=== PATIENT | female | born 1990 | race Asian ===

== ENCOUNTER 2017-02-04 10:11 | Emergency (ER) | payer OTHER ==
[2017-02-04] MEDS ORDERED: Lidocaine 2% VISCOUS* 15 ML UDC PO ONE (12:29)
[2017-02-04] MEDS ORDERED: Ibuprofen TAB* 600 MG PO ONE (12:32)
--- NOTE | 2017-02-04 12:34 | ED ---
Throat Pain/Nasal Congestion - HPI Summary HPI Summary: Patient presents with the sensation that she has something stuck in her throat. She at very hot soup and corn chips yesterday, and the pain began then. She denies eating foods with bones recently. She denies difficulty breathing or swallowing, and has been able to eat and drink. She has not taken any medication for pain. - History of Current Complaint Chief Complaint: EDThroatPain Time Seen by Provider: 02/04/17 10:22 Hx Obtained From: Patient Onset/Duration: Sudden Onset Severity: Mild Associated Signs And Symptoms: Positive: Dysphagia Cough: None - Allergies/Home Medications Allergies/Adverse Reactions: Allergies Allergy/AdvReac Type Severity Reaction Status Date / Time No Known Allergies Allergy Verified 02/04/17 11:36 PMH/Surg Hx/FS Hx/Imm Hx Previously Healthy: Yes Infectious Disease History: No Infectious Disease History: Reports: Traveled Outside the [place] in Last 30 Days - mears - Family History Known Family History: Positive: None - Social History Occupation: Student Lives: Alone Alcohol Use: None Substance Use Type: Reports: None Smoking Status (MU): Never Smoked Tobacco Review of Systems Negative: Fever, Chills Positive: Sore Throat Negative: Chest Pain Negative: Shortness Of Breath, Cough All Other Systems Reviewed And Are Negative: Yes Physical Exam Triage Information Reviewed: Yes Vital Signs On Initial Exam: Initial Vitals Temp Pulse Resp BP Pulse Ox 98.4 F 67 16 98/64 100 02/04/17 10:14 02/04/17 10:14 02/04/17 10:14 02/04/17 10:14 02/04/17 10:14 Vital Signs Reviewed: Yes Appearance: Positive: Well-Appearing, No Pain Distress, Well-Nourished Skin: Positive: Warm, Skin Color Reflects Adequate Perfusion, Dry, Soft Head/Face: Positive: Normal Head/Face Inspection Eyes: Positive: EOMI, BRONWYN, Conjunctiva Clear ENT: Positive: Hearing grossly normal, Pharynx normal. Negative: Pharyngeal erythema, Nasal congestion, Tonsillar swelling, Tonsillar exudate Neck: Positive: Supple, Nontender, No Lymphadenopathy Respiratory/Lung Sounds: Positive: Clear to Auscultation, Breath Sounds Present Cardiovascular: Positive: RRR Musculoskeletal: Negative: Edema Left, Edema Right Neurological: Positive: Sensory/Motor Intact, Alert, Oriented to Person Place, Time, [place] Bundle Intact Distally, Normal Gait Psychiatric: Positive: Affect/Mood Appropriate AVPU Assessment: Alert Diagnostics - Vital Signs Vital Signs Temp Pulse Resp BP Pulse Ox 02/04/17 10:14 98.4 F 67 16 98/64 100 - Laboratory Lab Statement: Any lab studies that have been ordered have been reviewed, and results considered in the medical decision making process. - Radiology No standard instances Xray Interpretation: No Acute Changes Radiology Interpretation Completed By: Radiologist EENT Course/Dx - Differential Diagnoses Differential Diagnoses: Abrasion, Contusion, Foreign Body, Laceration, Trauma - Diagnoses Provider Diagnoses: Sore throat Discharge - Discharge Plan Condition: Stable Disposition: HOME Referrals: [facility] [Medical Doctor] - Additional Instructions: Please eat soft foods for the next 1-2 days until your throat improves. Use 600mg of ibuprofen three times daily with meals for the next 2-3 days to decrease pain. Follow-up with [facility] if your symptoms do not begin to improve in the next 3 days. Return to the emergency department if symptoms worsen.
--- NOTE | 2017-02-04 12:38 | RAD ---
INDICATION: Difficulty swallowing. Evaluate for foreign body COMPARISON: None TECHNIQUE: 2 views neck soft tissue technique are submitted. FINDINGS: There is nonspecific prominence of the prevertebral soft tissues including the soft tissues at the level the proximal esophagus. There may also be prominent tonsillar tissue. The epiglottis cannot be from the soft tissues. If further evaluation is required, consider CT imaging. There are no acute bony changes. There is mild reversal of normal cervical lordosis. IMPRESSION: PROMINENCE OF SOFT TISSUES AT THE LEVEL OF THE HYPOPHARYNX. SUGGEST CT IMAGING IF INDICATED CLINICALLY.
[2017-02-04 18:16] VITALS: BP 93/61
== END 2017-02-04 12:28 | disposition home or self-care (01) ==
LOC: ED 10:11
DX: J02.9 Acute pharyngitis, unspecified (principal); R13.10 Dysphagia, unspecified
CPT/HCPCS: 70360; 99282; A9270-GY